=== PATIENT | female | born 1985 ===

== ENCOUNTER 2024-12-05 06:27 | Inpatient (IN) | payer OTHER ==
[~2024-12-05] VITALS: Ht 152.4 cm; Wt 2.3 kg
[2024-12-05 05:40] VITALS: BP 115/62
[2024-12-05 05:48] VITALS: BP 115/62
[2024-12-05] MEDS ORDERED: MAGNESIUM SULFATE IN WATER 500 ML IV SCH (06:45)
[2024-12-05] MEDS ORDERED: RINGERS SOLUTION,LACTATED 1,000 ML IV SCH (06:45)
[2024-12-05] MEDS ORDERED: PRENATA CHEWAB1 EACH PO (06:58)
[2024-12-05] MEDS ORDERED: NIFEDIPINE20 MG PO (06:59)
[2024-12-05] MEDS ORDERED: MAGNESIUM SULFATE IN WATER 4 GM/100 ML PIGGYBACK IV NR (07:00)
[2024-12-05] MEDS ORDERED: SYNTHROID50 MCG PO (07:00)
[2024-12-05 07:21] VITALS: BP 110/65
[2024-12-05 08:15] LABS: BASO % 0.3 % (0.1-1.2); EOS # 0.10 (0.04-0.54); EOS % 0.8 % (0.7-7.0); LYMPH # 1.16 (1.18-3.74); LYMPH % 9.9 % (19.3-53.1); MEAN PLATELET VOLUME 10.60 fl (9.4-12.4); MONO # 0.83 (0.24-0.82); MONO % 7.1 % (4.7-12.5); NEUT # 9.49 (1.56-6.13); NEUT % 80.6 % (34.0-71.1); RED CELL DISTRIBUTION WIDTH 13.2 % (11.6-14.4)
[2024-12-05 08:41] LABS: INR < 0.93
[2024-12-05] MEDS ORDERED: BETAMETHASONE ACETATE,SOD PHOS 30 MG/5 ML ML IM SCH (09:00)
[2024-12-05 11:06] VITALS: BP 108/63
[2024-12-05] MEDS ORDERED: AMPICILLIN SODIUM 1,000 MG VIAL IV ONE (15:30)
[2024-12-05 15:33] VITALS: BP 110/69
[2024-12-05] MEDS ORDERED: AMPICILLIN SODIUM 2,000 MG VIAL IV ONE (16:15)
[2024-12-05 19:38] VITALS: BP 111/67
[2024-12-05] MEDS ORDERED: AMPICILLIN SODIUM 1,000 MG VIAL IV SCH (20:00)
[2024-12-05 20:59] LABS: ALT/SGPT 22.0 U/L (12-78); AST/SGOT 16.0 U/L (15-37); BILIRUBIN TOTAL 0.29 mg/dL (0.3-1.2); BUN CREA RATIO 18.0 (7.0-25.0); CREATININE SERUM 0.39 mg/dL (0.55-1.02); GFR 184.93; GLOBULINA 3.8 G/DL (2.4-3.5); GLUCOSE FASTING 122.0 mg/dL (65-100); OSMOLALITY SERUM 275.0 MOSM/KG (275-295)
[2024-12-06] VITALS (7 sets, daily range): BP systolic 97–114; BP diastolic 50–67
[2024-12-06] MEDS ORDERED: OXYTOCIN 10 UNITS/ML VIAL IV ONE (15:45)
[2024-12-06] MEDS ORDERED: OXYTOCIN 1,000 ML IV SCH (15:45)
[2024-12-06] MEDS ORDERED: ERYTHROMYCIN BASE OPHT 1GM EACH TUBE OP ONE (15:45)
[2024-12-06] MEDS ORDERED: MORPHINE SULFATE 4 MG/ML CARTRIDGE IV PRN (15:45)
[2024-12-06] MEDS ORDERED: MORPHINE SULFATE 4 MG/ML VIAL IV ONE ×2 (17:35→18:25)
[2024-12-07 08:00] VITALS: BP 101/61
[2024-12-07 18:30] VITALS: BP 94/59; O2SAT 99
[2024-12-08 01:42] VITALS: BP 94/56
[2024-12-08] MEDS ORDERED: OxyCODONE HCL 5 MG TABLET (ROXICODONE) PO PRN (06:00)
[2024-12-08 08:44] VITALS: BP 101/62
[2024-12-08 16:00] VITALS: BP 101/61
[2024-12-09 00:32] VITALS: BP 99/63
[2024-12-09 08:00] VITALS: BP 112/70
== END 2024-12-09 17:56 | disposition home or self-care (01) | DRG 788 ==
LOC: LDR 06:27 → O/R 12-06 15:08 → OB/GYN 12-06 15:56
PROVIDERS: Obstetrics & Gynecology Gynecology; ADMIT Obstetrics & Gynecology; ATTEND Obstetrics & Gynecology
PROC: BY4FZZZ Ultrasonography of Third Trimester, Single Fetus (ICD-10-PCS; 2024-12-05)
PROC: BU4CZZZ Ultrasonography of Uterus and Ovaries (ICD-10-PCS; 2024-12-05)
PROC: 4A1HXCZ Monitoring of Products of Conception, Cardiac Rate, External Approach (ICD-10-PCS; 2024-12-05)
PROC: 10D00Z1 Extraction of Products of Conception, Low, Open Approach (ICD-10-PCS; principal; 2024-12-06 15:00)
DX: O26.843 Uterine size-date discrepancy, third trimester (principal); O36.8130 Decreased fetal movements, third trimester, not applicable or unspecified; O60.14X0 Preterm labor third trimester with preterm delivery third trimester, not applicable or unspecified; O42.013 Preterm premature rupture of membranes, onset of labor within 24 hours of rupture, third trimester; Z3A.34 34 weeks gestation of pregnancy; Z37.0 Single live birth